=== PATIENT | male | born 1940 | race Caucasian/White ===

== ENCOUNTER 2017-07-18 08:08 | Emergency (ER) | payer OTHER ==
[~2017-07-18] VITALS: Ht 157.5 cm; Wt 63.6 kg
[2017-07-18 08:11] VITALS: Ht 157.5 cm; Wt 63.6 kg
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
== END 2017-07-18 09:23 | disposition home or self-care (01) ==
LOC: E/R 08:08
DX: F43.9 Reaction to severe stress, unspecified (principal)
CPT/HCPCS: 99282